=== PATIENT | male | born 1945 | race Caucasian/White ===

== ENCOUNTER 2020-01-22 09:12 | Emergency (ER) | payer OTHER ==
[~2020-01-22] VITALS: Ht 180.3 cm; Wt 92.1 kg
[~2020-01-22 09:12] MED LIST: ASPI81TA31 PO; FLUO40CA8 PO; LISI-607 PO; METF-440 PO; METO25TA6 PO; PRAV20TA4 PO
--- NOTE | 2020-01-22 09:34 | NUR ---
Pt. was seen by .
[2020-01-22 10:18] LABS: BASOPHILS # (AUTO) 0.1 K/uL (0.0-8.0); BASOPHILS % (AUTO) 1.3 % (0.0-2.0); EOSINOPHILS # (AUTO) 0.5 K/uL (0.0-0.7); EOSINOPHILS % (AUTO) 6.2 % (0.0-7.0); HEMATOCRIT 38.6 % (36.7-47.1); HEMOGLOBIN 12.9 g/dL (12.5-16.3); LYMPHOCYTES # (AUTO) 1.6 K/uL (20.0-40.0); LYMPHOCYTES % (AUTO) 21.2 % (20.5-51.5); MEAN CORPUSCULAR HEMOGLOBIN 29.7 uug (23.8-33.4); MEAN CORPUSCULAR HGB CONC 33 g/dL (32.5-36.3); MEAN CORPUSCULAR VOLUME 88.7 fL (73.0-96.2); MONOCYTES # (AUTO) 0.7 K/uL (2.0-10.0); MONOCYTES % (AUTO) 9.8 % (0.0-11.0); NEUTROPHILS # (AUTO) 4.6 K/uL (1.8-8.9); NEUTROPHILS % (AUTO) 61.5 % (38.5-71.5); PLATELET COUNT (AUTO) 312 K/uL (152-348); RED BLOOD CELL COUNT(AUTO) 4.35 MIL/uL (4.06-5.63); WHITE BLOOD COUNT (AUTO) 7.5 K/uL (3.6-10.2)
[2020-01-22 10:27] LABS: CREATININE 1.3 mg/dL (0.6-1.3); POTASSIUM 4.1 mmol/L (3.5-5.1)
[2020-01-22 10:33] LABS: BILIRUBIN,DIRECT 0.1 mg/dL (0.0-0.2); BILIRUBIN,TOTAL 0.2 mg/dL (0.2-1.0)
--- NOTE | 2020-01-22 10:44 | NUR ---
Pt.back from CT scan,no s/s of distress,denies any pain.
--- NOTE | 2020-01-22 10:50 | NUR ---
Pt. BP 164/120 . notified,care out new order,given.
[2020-01-22] MEDS ORDERED: METOPROLOL TARTRATE 50 MG TABLET ONE (11:09)
[2020-01-22] MEDS ORDERED: METOPROLOL TARTRATE 50 MG TABLET PO ONE (11:15)
[2020-01-22 11:23] VITALS: BP 164/120
== END 2020-01-22 11:28 | disposition home or self-care (01) ==
LOC: ER 09:12
DX: H53.2 Diplopia (principal); I10 Essential (primary) hypertension; E78.00 Pure hypercholesterolemia, unspecified; E11.9 Type 2 diabetes mellitus without complications; Z79.82 Long term (current) use of aspirin; Z79.899 Other long term (current) drug therapy; V49.9XXA Car occupant (driver) (passenger) injured in unspecified traffic accident, initial encounter; Y93.89 Activity, other specified; Y92.89 Other specified places as the place of occurrence of the external cause; Y99.8 Other external cause status
CPT/HCPCS: 36415; 70030-TC; 70450; 85025; 85730; A4663